=== PATIENT | female | born 1945 | race Caucasian/White ===

== ENCOUNTER 2019-05-10 09:38 | Emergency (ER) | payer MEDICARE ==
[2019-05-10 09:55] VITALS: BP 151/71; PULSE 65
--- NOTE | 2019-05-10 10:53 | EDM.PDOC ---
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 She suddenly felt like thing were moving in front of her. She pulled over and then it got better. She did not have any chest pain. She was not sob. She then developed numbness in the left wrist. She continued to have good motion in the left arm and hand. She has had some episodes of dizziness over the last few monthes. She did not have chest pain today. Onset: Today, Sudden Duration: Hour(s): Location: Reports: Head, Upper Extremity, Left Associated Symptoms: Reports: Nausea/Vomiting - Related Data Allergies Allergy/AdvReac Type Severity Reaction Status Date / Time aspirin Allergy Cough Verified 08/14/18 09:45 Penicillins Allergy Cough Verified 08/14/18 09:45 Sulfa (Sulfonamide Allergy Cough Verified 08/14/18 09:45 Antibiotics) Home Meds: Home Meds *Probiotic 1 tab PO DAILY 11/14/15 [History] ALPRAZolam [Xanax] 0.5 mg PO BID 11/14/15 [History] Atenolol [Tenormin] 50 mg PO DAILY 11/14/15 [History] Cholecalciferol (Vitamin D3) [Vitamin D3] 1,000 unit PO DAILY 11/14/15 [History] Multivit-Min/FA/Lycopene/Lut [Centrum Silver Tablet] 1 tab PO DAILY 11/14/15 [ History] Ubidecarenone [Co Q-10] 200 mg PO DAILY 11/14/15 [History] diphenhydrAMINE [Benadryl] 25 mg PO BEDTIME PRN 11/14/15 [History] Past Medical History HEENT History: Reports: Impaired Vision, Sinusitis Cardiovascular History: Reports: Other (See Below) Other Cardiovascular History: mitral valve prolapse Respiratory History: Reports: Bronchitis, Recurrent, Other (See Below) Other Respiratory History: Occasional pneumonia Gastrointestinal History: Reports: Irritable Bowel Syndrome, Other (See Below) Other Gastrointestinal History: chron's / colitis Genitourinary History: Reports: UTI, Recurrent 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 (See Below) 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 Psychiatric History: Reports: Anxiety, Depression Hematologic History: Reports: Blood Transfusion(s) Dermatologic History: Reports: Eczema - Infectious Disease History Infectious Disease History: Reports: Chicken Pox, Measles, Mumps - Past Surgical History HEENT Surgical History: Reports: Oral Surgery, Tonsillectomy Cardiovascular Surgical History: Reports: Other (See Below) Other Cardiovascular Surgeries/Procedures: angiogram Respiratory Surgical History: Reports: None GI Surgical History: Reports: Appendectomy, Cholecystectomy, Colonoscopy, EGD Female Surgical History: Reports: Hysterectomy Social & Family History - Tobacco Use Smoking Status *Q: Never Smoker - Caffeine Use Caffeine Use: Reports: Coffee, Tea - Recreational Drug Use Recreational Drug Use: No ED ROS GENERAL - Review of Systems Review Of Systems: See Below Constitutional: Reports: No Symptoms HEENT: Reports: No Symptoms Respiratory: Reports: No Symptoms Cardiovascular: Reports: Lightheadedness, Other ( pt believes she had vertigo. ) Endocrine: Reports: No Symptoms GI/Abdominal: Reports: No Symptoms : Reports: No Symptoms Musculoskeletal: Reports: No Symptoms Skin: Reports: No Symptoms ED EXAM, GENERAL - Physical Exam Exam: See Below Free Text/Narrative:: Myra had an episode that sounded like vertigo. She pulledover to the side of the road and she felt like most of it passed. She still feels a little vertigious if she moves quickly. Exam Limited By: No Limitations General Appearance: Alert, Anxious, Mild Distress, Other (pupils are equal and reactive. ) Ears: Normal TMs Nose: Normal Inspection Throat/Mouth: Normal Inspection Head: Atraumatic Neck: Normal Inspection, Other (no evidence of carotid bruits. ) Respiratory/Chest: No Respiratory Distress Cardiovascular: Regular Rate, Rhythm GI/Abdominal: Soft, Non-Tender (Female) Exam: Deferred Rectal (Female) Exam: Deferred Back Exam: Normal Inspection Extremities: Normal Inspection Neurological: Alert, Oriented, No Motor/Sensory Deficits Psychiatric: Normal Affect Course - Vital Signs Last Recorded V/S: Last Vital Signs Temp 36.2 C 05/10/19 09:58 Pulse 65 05/10/19 09:58 Resp 16 05/10/19 09:58 BP 151/71 H 05/10/19 09:58 Pulse Ox 95 05/10/19 09:58 Orthostatic Blood Pressure [ 136/72 Standing] Orthostatic Blood Pressure [ 140/72 Sitting] Orthostatic Blood Pressure [ 129/49 Supine] - Orders/Labs/Meds Labs: Laboratory Tests 05/10/19 05/10/19 05/10/19 Range/Units 10:59 10:59 11:04 WBC 8.7 (4.5-11.0) K/uL RBC 4.50 (3.30-5.50) M/uL Hgb 11.6 L (12.0-15.0) g/dL Hct 36.6 (36.0-48.0) % MCV 81 (80-98) fL MCH 26 L (27-31) pg MCHC 32 (32-36) % Plt Count 477 H (150-400) K/uL Neut % (Auto) 57 (36-66) % Lymph % (Auto) 25 (24-44) % [place] % (Auto) 8 H (2-6) % Eos % (Auto) 10 H (2-4) % Baso % (Auto) 1 (0-1) % Sodium 140 (140-148) mmol/L Potassium 4.0 (3.6-5.2) mmol/L Chloride 106 (100-108) mmol/L Carbon Dioxide 25 (21-32) mmol/L Anion Gap 8.6 (5.0-14.0) mmol/L BUN 13 D (7-18) mg/dL Creatinine 0.7 (0.6-1.0) mg/dL Est Cr Clr Drug Dosing 73.83 mL/min Estimated GFR (MDRD) > 60 (>60) Glucose 99 (74-106) mg/dL Calcium 9.7 (8.5-10.1) mg/dL Total Bilirubin 0.2 (0.2-1.0) mg/dL AST 19 (15-37) U/L ALT 27 (12-78) U/L Alkaline Phosphatase 83 (46-116) U/L Troponin I < 0.017 (0.000-0.056) ng/mL Total Protein 7.3 (6.4-8.2) g/dL Albumin 2.9 L (3.4-5.0) g/dL Globulin 4.4 H (2.3-3.5) g/dL Albumin/Globulin Ratio 0.7 L (1.2-2.2) Urine Color Yellow Urine Appearance Clear Urine pH 7.0 (4.5-8.0) Ur Specific [place] 1.010 (1.008-1.030) Urine Protein Negative (NEGATIVE) mg/dL Urine Glucose (UA) Normal (NEGATIVE) mg/dL Urine Ketones Negative (NEGATIVE) mg/dL Urine Occult Blood Trace (NEGATIVE) Urine Nitrite Negative (NEGATIVE) Urine Bilirubin Negative (NEGATIVE) Urine Urobilinogen Normal (NORMAL) mg/dL Ur Leukocyte Esterase Trace (NEGATIVE) Urine RBC 0-5 (0-5) Urine WBC 0-5 (0-5) Ur Epithelial Cells Rare Amorphous Sediment Not seen Urine Bacteria Few Urine Mucus Not seen Meds: Medications Discontinued Medications Generic Name Dose Route Start Last Admin Trade Name Yohannes PRN Reason Stop Dose Admin Meclizine HCl 25 mg 05/10/19 12:57 05/10/19 13:02 Antivert PO 05/10/19 12:58 25 mg ONETIME ONE Administration - Re-Assessments/Exams Free Text/Narrative Re-Assessment/Exam: 05/17/19 07:04 pt had a cat scan of the head which was neg. She had normal lab work. She was given antivert 25 while here. She was given some fluids. She felt better and she was discharged. She is working over nites and she might want to limit it to 2 nites in a row and not 3. She is caring for a close friend and I feel this is quite emotional for her. Departure - Departure Time of Disposition: 13:16 Disposition: Home, Self-Care 01 Condition: Fair Clinical Impression: Vertigo, Light sensitivity - Discharge Information Instructions: Vertigo, [id number] Referrals: Liang Webb MD [Primary Care Provider] - Forms: ED Department Discharge Care Plan Goals: keep appt for physical scheduled, Send a copy of her labs with pt for that appt , avoid working more than 2 nites in a row doing over nites. schedule carotid US antivert 25 mg as needed for episodes of vertigo.
--- NOTE | 2019-05-10 11:43 | CT ---
Head wo Cont CLINICAL HISTORY: Tingling left upper extremity COMPARISON: MR brain 2017 TECHNIQUE: Transverse scans were obtained from the base of the skull through the vertex without IV contrast on a multislice, multidetector CT scanner. Auto dosage reduction and iterative reconstruction techniques employed. FINDINGS: No focal abnormal parenchymal density is identified. There is no mass effect, hemorrhage, or extraaxial collection. The basal cisterns and sulci over the convexities are normal. The ventricles are normal for age. IMPRESSION: No acute intracranial findings or significant change from MR brain 2017
[2019-05-10] MEDS ORDERED: Meclizine 25 MG Tab PO ONE (12:57)
== END 2019-05-10 13:44 | disposition home or self-care (01) ==
LOC: JP.ED 09:38
DX: R42 Dizziness and giddiness (principal); H53.149 Visual discomfort, unspecified; F41.9 Anxiety disorder, unspecified; F32.9 Major depressive disorder, single episode, unspecified; Z90.710 Acquired absence of both cervix and uterus; Z98.890 Other specified postprocedural states; Z90.49 Acquired absence of other specified parts of digestive tract; Z88.0 Allergy status to penicillin; Z88.6 Allergy status to analgesic agent; Z88.2 Allergy status to sulfonamides
CPT/HCPCS: 36415; 70450; 80053; 81001; 84484; 85025; 93005; 99284; A9270; 93010; 99282

== ENCOUNTER 2021-10-14 07:12 | Inpatient (IN) | payer MEDICARE ==
[2021-10-14] MEDS ORDERED: Sodium Chloride 0.9% 10 ML Syringe FLUSH PRN ×2 (07:25→11:19)
[2021-10-14] MEDS ORDERED: Ondansetron 4 MG/2 ML SDV IVPUSH ONE (07:26)
[2021-10-14] MEDS ORDERED: HYDROmorphone 0.5 MG/0.5 ML Syringe IVPUSH ONE ×2 (07:27→08:38)
[2021-10-14] MEDS ORDERED: Sodium Chloride 0.9% 1,000 ML IV SCH (08:30)
[2021-10-14] MEDS: Iopamidol 612 MG/ML 100 ML Bottle IV STA (09:26)
--- NOTE | 2021-10-14 10:24 | CRLCT ---
For Patients: As a result of the Century Cures Act, medical imaging exams and procedure reports are released immediately into your electronic medical record. You may view this report before your referring provider. If you have questions, please contact your health care provider. Indication: Upper abdominal pain Technique: Contrast CT abdomen pelvis Comparison: No comparison Findings: Heart size is normal. Basilar atelectasis. No effusion. Moderate hiatal hernia splenic adrenal glands. Unremarkable pancreas unremarkable. No abdominal aortic aneurysm. Cholecystectomy biliary dilatation. No abdominal aortic aneurysm. Symmetric enhancement of kidneys. Tiny too small to characterize low attenuation lesion on the right Is proximal mid mildly prominent fluid-filled small bowel loops. Dilated 3.6 centimeter distal small bowel loops with adjacent distal small bowel wall thickening with inflammatory change which is decompressed. This is seen on There are other areas of small bowel wall thickening and inflammatory changes in the distal small bowel with mucosal enhancement. Findings could be related to areas of small bowel obstruction related to intervening areas of enteritis. Small amount of free fluid in the pelvis. Stomach and colon are fluid-filled. Urinary bladder unremarkable. Minimal amount of fluid in the pelvis. There is no free air. No suspicious bony lesions are seen. Impression: 1. Mildly prominent fluid filled proximal and mid small bowel loops. Dilated the 0.6 tumor distal small bowel loops with adjacent distal small bowel thickening and inflammatory change which is decompressed. There are multiple other distal small bowel loops areas of wall thickening and enhancement. Findings could be related to small bowel obstruction with multiple areas of small bowel enteritis. The colon small bowel and stomach are fluid-filled which could be related to gastroenteritis. Please note that all CT scans at this facility use dose modulation, iterative reconstruction, and/or weight-based dosing when appropriate to reduce radiation dose to as low as reasonably achievable. Dictated by Tracy Perez MD @ 10/14/2021 10:23:16 AM (Electronically Signed)
--- NOTE | 2021-10-14 10:54 | EDM.PDOC ---
ED HPI GENERAL MEDICAL PROBLEM - General Chief Complaint: Respiratory Problem Stated Complaint: SHORTNESS OF BREATH Time Seen by Provider: 10/14/21 07:20 Source of Information: Reports: Patient, EMS History Limitations: Reports: No Limitations - History of Present Illness INITIAL COMMENTS - FREE TEXT/NARRATIVE: pt arrived with some hest pressure. She woke up with severe upper abdomanal pain. She did vomit at home. She has a known history of crohns disease. She continued to have pain and tenderness in the epigastric area. S Duration: Hour(s): Location: Reports: Chest, Abdomen, Generalized Associated Symptoms: Reports: Nausea/Vomiting, Shortness of Breath, Weakness Upper Epigastric Pain Score (Numeric/FACES): 7 - Related Data Allergies Allergy/AdvReac Type Severity Reaction Status Date / Time aspirin Allergy Cough Verified 10/14/21 07:34 Penicillins Allergy Cough Verified 10/14/21 07:34 Sulfa (Sulfonamide Allergy Cough Verified 10/14/21 07:34 Antibiotics) Home Meds: Home Meds *Probiotic 1 tab PO DAILY 11/14/15 [History] ALPRAZolam [Xanax] 0.5 mg PO BID 11/14/15 [History] Cholecalciferol (Vitamin D3) [Vitamin D3] 2,000 unit PO DAILY 11/14/15 [History] Multivit-Min/FA/Lycopen/Lutein [Centrum Silver Tablet] 1 tab PO DAILY 11/14/15 [History] Ubidecarenone [Co Q-10] 200 mg PO DAILY 11/14/15 [History] atenoloL [Tenormin] 25 mg PO DAILY 11/14/15 [History] diphenhydrAMINE [Benadryl] 25 mg PO BEDTIME PRN 11/14/15 [History] Cyanocobalamin (Vitamin B-12) [Vitamin B-12] 1,000 mg PO DAILY 04/26/20 [History] Meclizine HCl 25 mg PO ASDIRECTED PRN 04/26/20 [History] Balsalazide [Colazal] 750 mg PO DAILY 10/14/21 [History] Past Medical History HEENT History: Reports: Impaired Vision, Sinusitis Cardiovascular History: Reports: Other (See Below) Other Cardiovascular History: mitral valve prolapse Respiratory History: Reports: Bronchitis, Recurrent, Other (See Below) Other Respiratory History: Occasional pneumonia Gastrointestinal History: Reports: Irritable Bowel Syndrome, Other (See Below) Other Gastrointestinal History: chron's / colitis Genitourinary History: Reports: UTI, Recurrent 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 Psychiatric History: Reports: Anxiety, Depression Hematologic History: Reports: Blood Transfusion(s) Dermatologic History: Reports: Eczema - Infectious Disease History Infectious Disease History: Reports: Chicken Pox, Measles, Mumps - Past Surgical History HEENT Surgical History: Reports: Oral Surgery, Tonsillectomy Cardiovascular Surgical History: Reports: Other (See Below) Other Cardiovascular Surgeries/Procedures: angiogram Respiratory Surgical History: Reports: None GI Surgical History: Reports: Appendectomy, Cholecystectomy, Colonoscopy, EGD Female Surgical History: Reports: Hysterectomy Social & Family History - Tobacco Use Tobacco Use Status *Q: Never Tobacco User - Caffeine Use Caffeine Use: Reports: None - Recreational Drug Use Recreational Drug Use: No ED ROS GENERAL - Review of Systems Review Of Systems: See Below Constitutional: Reports: Weakness, Diaphoresis HEENT: Reports: No Symptoms Respiratory: Reports: Shortness of Breath Cardiovascular: Reports: Other ( She did feel some chest pressure) Endocrine: Reports: No Symptoms GI/Abdominal: Reports: Abdominal Pain, Nausea, Vomiting : Reports: No Symptoms Musculoskeletal: Reports: No Symptoms Skin: Reports: No Symptoms ED EXAM, GENERAL - Physical Exam Exam: See Below Free Text/Narrative:: pt arrived with paini in the epigastric area. She does not think this feel like heart burn. She did vomit at home. Exam Limited By: No Limitations General Appearance: Alert, Anxious, Moderate Distress, Other (pt is rating her pain at a 8-9. ) Ears: Normal TMs Nose: Normal Inspection Throat/Mouth: Normal Inspection Head: Atraumatic Neck: Normal Inspection Respiratory/Chest: No Respiratory Distress Cardiovascular: Regular Rate, Rhythm, Other (pt is having a number of ectopics. ) GI/Abdominal: Other ( tender in the epigastric area. ) (Female) Exam: Deferred Rectal (Female) Exam: Deferred, Other (pt chronicly has diarrhea) Back Exam: Normal Inspection Extremities: Normal Inspection Neurological: Alert, Oriented, Normal Cognition Psychiatric: Anxious Course - Vital Signs Last Recorded V/S: Last Vital Signs Temp 36.2 C 10/14/21 07:15 Pulse 83 10/14/21 10:10 Resp 18 10/14/21 10:10 BP 134/66 10/14/21 10:10 Pulse Ox 94 L 10/14/21 10:10 - Orders/Labs/Meds Orders: Active Orders 24 hr Category Date Time Status Chest 1V Frontal [CR] Stat Exams 10/14/21 07:26 Taken Sodium Chloride 0.9% [Normal Saline] 1,000 ml Med 10/14/21 08:30 Active IV ASDIRECTED Sodium Chloride 0.9% [Saline Flush] Med 10/14/21 07:25 Active 10 ml FLUSH ASDIRECTED PRN Saline Lock Insert [OM.PC] Routine Oth 10/14/21 07:25 Ordered EKG 12 Lead [EK] Routine Ther 10/14/21 07:25 Ordered Medication Orders Sodium Chloride (Normal Saline) 1,000 mls @ 250 mls/hr IV ASDIRECTED SOBIA Last Admin: 10/14/21 08:58 Dose: 250 mls/hr Documented by: MYRTLE Sodium Chloride (Sodium Chloride 0.9% 10 Ml Syringe) 10 ml FLUSH ASDIRECTED PRN PRN Reason: Keep Vein Open Last Admin: 10/14/21 08:07 Dose: 10 ml Documented by: MYRTLE Labs: Laboratory Tests 10/14/21 10/14/21 10/14/21 Range/Units 07:24 07:25 07:30 WBC 15.6 H (4.5-11.0) K/uL RBC 5.51 H (3.30-5.50) M/uL Hgb 13.6 D (12.0-15.0) g/dL Hct 42.1 (36.0-48.0) % MCV 76 L (80-98) fL MCH 25 L (27-31) pg MCHC 32 (32-36) % Plt Count 562 H (150-400) K/uL Neut % (Auto) 85.8 H (36-66) % Lymph % (Auto) 9.2 L (24-44) % [place] % (Auto) 4.0 (2-6) % Eos % (Auto) 0.7 L (2-4) % Baso % (Auto) 0.3 (0-1) % Sodium 138 L (140-148) mmol/L Potassium 4.0 (3.6-5.2) mmol/L Chloride 103 (100-108) mmol/L Carbon Dioxide 23 (21-32) mmol/L Anion Gap 16.0 H (5.0-14.0) mmol/L BUN 12 (7-18) mg/dL Creatinine 0.9 (0.6-1.0) mg/dL Est Cr Clr Drug Dosing 56.61 mL/min Estimated GFR (MDRD) > 60 (>60) Glucose 133 H (74-106) mg/dL Calcium 10.2 H (8.5-10.1) mg/dL Total Bilirubin 0.4 D (0.2-1.0) mg/dL AST 17 (15-37) U/L ALT 23 (12-78) U/L Alkaline Phosphatase 93 (46-116) U/L Troponin I High Sens (<=60.3) pg/mL C-Reactive Protein (0.0-0.3) mg/dL Total Protein 7.9 (6.4-8.2) g/dL Albumin 3.4 (3.4-5.0) g/dL Globulin 4.5 H (2.3-3.5) g/dL Albumin/Globulin Ratio 0.8 L (1.2-2.2) Lipase (73-393) U/L Urine Color (YELLOW) Urine Appearance Clear (CLEAR) Urine pH 5.5 (5.0-8.0) Ur Specific [place] >= 1.030 (1.008-1.030) Urine Protein 30 H (NEGATIVE) mg/dL Urine Glucose (UA) Negative (NEGATIVE) mg/dL Urine Ketones Negative (NEGATIVE) mg/dL Urine Occult Blood Moderate H (NEGATIVE) Urine Nitrite Negative (NEGATIVE) Urine Bilirubin Negative (NEGATIVE) Urine Urobilinogen 0.2 (0.2-1.0) EU/dL Ur Leukocyte Esterase Negative (NEGATIVE) Urine RBC 5-10 H (0-5) Urine WBC Not seen (0-5) Ur Epithelial Cells Few Amorphous Sediment Not seen Urine Bacteria Not seen Urine Mucus Many Urine Other 10/14/21 10/14/21 Range/Units 07:30 07:30 WBC (4.5-11.0) K/uL RBC (3.30-5.50) M/uL Hgb (12.0-15.0) g/dL Hct (36.0-48.0) % MCV (80-98) fL MCH (27-31) pg MCHC (32-36) % Plt Count (150-400) K/uL Neut % (Auto) (36-66) % Lymph % (Auto) (24-44) % [place] % (Auto) (2-6) % Eos % (Auto) (2-4) % Baso % (Auto) (0-1) % Sodium (140-148) mmol/L Potassium (3.6-5.2) mmol/L Chloride (100-108) mmol/L Carbon Dioxide (21-32) mmol/L Anion Gap (5.0-14.0) mmol/L BUN (7-18) mg/dL Creatinine (0.6-1.0) mg/dL Est Cr Clr Drug Dosing mL/min Estimated GFR (MDRD) (>60) Glucose (74-106) mg/dL Calcium (8.5-10.1) mg/dL Total Bilirubin (0.2-1.0) mg/dL AST (15-37) U/L ALT (12-78) U/L Alkaline Phosphatase (46-116) U/L Troponin I High Sens 4.9 (<=60.3) pg/mL C-Reactive Protein 0.92 H (0.0-0.3) mg/dL Total Protein (6.4-8.2) g/dL Albumin (3.4-5.0) g/dL Globulin (2.3-3.5) g/dL Albumin/Globulin Ratio (1.2-2.2) Lipase 158 (73-393) U/L Urine Color (YELLOW) Urine Appearance (CLEAR) Urine pH (5.0-8.0) Ur Specific [place] (1.008-1.030) Urine Protein (NEGATIVE) mg/dL Urine Glucose (UA) (NEGATIVE) mg/dL Urine Ketones (NEGATIVE) mg/dL Urine Occult Blood (NEGATIVE) Urine Nitrite (NEGATIVE) Urine Bilirubin (NEGATIVE) Urine Urobilinogen (0.2-1.0) EU/dL Ur Leukocyte Esterase (NEGATIVE) Urine RBC (0-5) Urine WBC (0-5) Ur Epithelial Cells Amorphous Sediment Urine Bacteria Urine Mucus Urine Other Meds: Medications Generic Name Dose Route Start Last Admin Trade Name Freq PRN Reason Stop Dose Admin Sodium Chloride 1,000 mls @ 250 mls/hr 10/14/21 08:30 10/14/21 08:58 Normal Saline IV 250 mls/hr ASDIRECTED SOBIA Administration Sodium Chloride 10 ml 10/14/21 07:25 10/14/21 08:07 Sodium Chloride 0.9% 10 Ml Syringe FLUSH 10 ml ASDIRECTED PRN Administration Keep Vein Open Discontinued Medications Generic Name Dose Route Start Last Admin Trade Name Yohannes PRN Reason Stop Dose Admin Hydromorphone HCl 0.5 mg 10/14/21 07:27 10/14/21 08:07 Hydromorphone 0.5 Mg/0.5 Ml Syringe IVPUSH 10/14/21 07:28 0.5 mg ONETIME ONE Administration Hydromorphone HCl 0.5 mg 10/14/21 08:38 10/14/21 08:56 Hydromorphone 0.5 Mg/0.5 Ml Syringe IVPUSH 10/14/21 08:39 0.5 mg ONETIME ONE Administration Sodium Chloride 73 mls @ 3.3 mls/sec 10/14/21 09:12 10/14/21 09:27 Normal Saline IV 10/14/21 09:13 3.3 mls/sec ASDIRECTED STA Administration Iopamidol 100 ml 10/14/21 09:11 10/14/21 09:26 Iopamidol 612 Mg/Ml 100 Ml Bottle IV 10/14/21 09:12 100 ml . DIRECTED STA Administration Ondansetron HCl 4 mg 10/14/21 07:26 10/14/21 08:05 Ondansetron 4 Mg/2 Ml Sdv IVPUSH 10/14/21 07:27 4 mg ONETIME ONE Administration - Re-Assessments/Exams Free Text/Narrative Re-Assessment/Exam: 10/14/21 10:54 pt had a ekg without st changes she is having alot of ectopics. Her trop is normal. She is having alot of pain in epigastric area. Her wbc was elevated. A cat scan of the abdoman. This shows numrous thickend areas. She may have had a bowel obstruction. She has had a mg of dilaudid and she is more comfortable. 10/14/21 10:55 Departure - Departure Time of Disposition: 10:57 Disposition: Admitted As Inpatient 64 Condition: Fair Clinical Impression: Partial bowel obstruction, Crohn's colitis, Dehydration Referrals: PCP,None [Primary Care Provider] - Forms: ED Department Discharge Care Plan Goals: admit to Dr solorio Sepsis Event Note (ED) - Evaluation Sepsis Screening Result: No Definite Risk - Focused Exam Vital Signs: Vital Signs Temp Pulse Resp BP Pulse Ox 10/14/21 10:10 83 18 134/66 94 L 10/14/21 09:10 72 17 138/52 L 94 L 10/14/21 08:10 83 23 H 147/61 H 96 10/14/21 07:15 36.2 C 73 23 H 143/67 H 98 - My Orders Last 24 Hours: My Active Orders 10/14/21 07:25 Sodium Chloride 0.9% [Saline Flush] 10 ml FLUSH ASDIRECTED PRN Saline Lock Insert [OM.PC] Routine EKG 12 Lead [EK] Routine 10/14/21 07:26 Chest 1V Frontal [CR] Stat 10/14/21 08:30 Sodium Chloride 0.9% [Normal Saline] 1,000 ml IV ASDIRECTED - Assessment/Plan Last 24 Hours: My Active Orders 10/14/21 07:25 Sodium Chloride 0.9% [Saline Flush] 10 ml FLUSH ASDIRECTED PRN Saline Lock Insert [OM.PC] Routine EKG 12 Lead [EK] Routine 10/14/21 07:26 Chest 1V Frontal [CR] Stat 10/14/21 08:30 Sodium Chloride 0.9% [Normal Saline] 1,000 ml IV ASDIRECTED
[2021-10-14] MEDS ORDERED: Ciprofloxacin in D5W 400 MG in Premix Bag 1 BAG IV SCH ×2 (11:00)
--- NOTE | 2021-10-14 11:03 | PCM.HP.2 ---
H&P History of Present Illness - General Date of Service: 10/14/21 Admit Problem/Dx: Admission Diagnosis/Problem Admission Diagnosis/Problem Small bowel obstruction Source of Information: Patient, Provider, RN Notes Reviewed History Limitations: Reports: No Limitations - History of Present Illness Initial Comments - Free Text/Narative: Ms. Lam is a 75-year-old woman who was admitted through the emergency department with abdominal pain, nausea, and vomiting, secondary to partial small bowel obstruction and underlying enteritis. She has a known history of Crohn's disease which has been relatively well controlled and she is in the process of tapering herself off of medication. She had been feeling well recently but awoke this morning at 2 AM with abdominal pain described as a intense ache in the right mid abdomen, with no radiation. This was associated with nausea and vomiting and because of progressive symptoms she presented to the emergency department early this morning. White blood cell count is found to be elevated and there is a very modest elevation in CRP. CT scan of the abdomen suggests small bowel obstruction, with dilated loops of small intestine. There is some inflammation also noted. Upper Epigastric Pain Score (Numeric/FACES): 7 - Related Data Allergies/Adverse Reactions: Allergies Allergy/AdvReac Type Severity Reaction Status Date / Time aspirin Allergy Cough Verified 10/14/21 07:34 Penicillins Allergy Cough Verified 10/14/21 07:34 Sulfa (Sulfonamide Allergy Cough Verified 10/14/21 07:34 Antibiotics) Home Medications: Home Meds *Probiotic 1 tab PO DAILY 11/14/15 [History] ALPRAZolam [Xanax] 0.5 mg PO BID 11/14/15 [History] Cholecalciferol (Vitamin D3) [Vitamin D3] 2,000 unit PO DAILY 11/14/15 [History] Multivit-Min/FA/Lycopen/Lutein [Centrum Silver Tablet] 1 tab PO DAILY 11/14/15 [History] Ubidecarenone [Co Q-10] 200 mg PO DAILY 11/14/15 [History] atenoloL [Tenormin] 25 mg PO DAILY 11/14/15 [History] diphenhydrAMINE [Benadryl] 25 mg PO BEDTIME PRN 11/14/15 [History] Cyanocobalamin (Vitamin B-12) [Vitamin B-12] 1,000 mg PO DAILY 04/26/20 [History] Meclizine HCl 25 mg PO ASDIRECTED PRN 04/26/20 [History] Balsalazide [Colazal] 750 mg PO DAILY 10/14/21 [History] Past Medical History HEENT History: Reports: Impaired Vision, Sinusitis Cardiovascular History: Reports: Other (See Below) Other Cardiovascular History: mitral valve prolapse Respiratory History: Reports: Bronchitis, Recurrent, Other (See Below) Other Respiratory History: Occasional pneumonia Gastrointestinal History: Reports: Irritable Bowel Syndrome, Other (See Below) Other Gastrointestinal History: chron's / colitis Genitourinary History: Reports: UTI, Recurrent [employer] History: Reports: Other (See Below) Other OB/BYN History: Hysterectomy Psychiatric History: Reports: Anxiety, Depression Hematologic History: Reports: Blood Transfusion(s) Dermatologic History: Reports: Eczema - Infectious Disease History Infectious Disease History: Reports: Chicken Pox, Measles, Mumps - Past Surgical History HEENT Surgical History: Reports: Oral Surgery, Tonsillectomy Cardiovascular Surgical History: Reports: Other (See Below) Other Cardiovascular Surgeries/Procedures: angiogram Respiratory Surgical History: Reports: None GI Surgical History: Reports: Appendectomy, Cholecystectomy, Colonoscopy, EGD Female Surgical History: Reports: Hysterectomy Social & Family History - Tobacco Use Tobacco Use Status *Q: Never Tobacco User - Caffeine Use Caffeine Use: Reports: None - Recreational Drug Use Recreational Drug Use: No H&P Review of Systems - Review of Systems: Review Of Systems: See Below General: Reports: Weakness, Fatigue, Decreased Appetite. Denies: Fever, Chills HEENT: Reports: No Symptoms Pulmonary: Reports: No Symptoms Cardiovascular: Reports: No Symptoms Gastrointestinal: Reports: Abdominal Pain, Distension, Nausea, Vomiting. Denies: Constipation, Diarrhea, Difficulty Swallowing, Hematemesis, Hematochezia, Melena Genitourinary: Reports: No Symptoms Musculoskeletal: Reports: No Symptoms Skin: Reports: No Symptoms Psychiatric: Reports: No Symptoms Neurological: Reports: No Symptoms Hematologic/Lymphatic: Reports: No Symptoms Immunologic: Reports: No Symptoms Exam - Exam Exam: See Below - Vital Signs Vital Signs: Last Vital Signs Temp 97.1 F 10/14/21 07:15 Pulse 83 10/14/21 10:10 Resp 18 10/14/21 10:10 BP 134/66 10/14/21 10:10 Pulse Ox 94 L 10/14/21 10:10 Weight: 160 lb - Exam Quality Assessment: DVT Prophylaxis General: Alert, Oriented, Cooperative, Mild Distress HEENT: Conjunctiva Clear, Hearing Intact, Mucosa Moist & [place], Normal Nasal Septum, Posterior Pharynx Clear, Pupils Equal Neck: Supple, Trachea Midline, +2 Carotid Pulse wo Bruit Lungs: Clear to Auscultation, Normal Respiratory Effort Cardiovascular: Regular Rate, Regular Rhythm, Normal S1, Normal S2. No: Systolic Murmur, Diastolic Murmur GI/Abdominal Exam: Soft, No Organomegaly, Distended, Tender. No: Guarding, Rigid, Rebound Back Exam: Normal Inspection, Full Range of Motion Extremities: Non-Tender, No Pedal Edema Skin: Warm, Dry, Intact, Other (Extensive seborrheic keratosis) Neurological: Cranial Nerves Intact, Strength Equal Bilateral, Normal Speech, Normal Tone, Sensation Intact. No: Focal Deficit Neuro Extensive - Mental Status: Alert, Oriented x3, Normal Mood/Affect, Normal Cognition, Memory Intact - Patient Data Lab Results Last 24 hrs: Laboratory Results - last 24 hr 10/14/21 10/14/21 10/14/21 Range/Units 07:24 07:25 07:30 WBC 15.6 H (4.5-11.0) K/uL RBC 5.51 H (3.30-5.50) M/uL Hgb 13.6 D (12.0-15.0) g/dL Hct 42.1 (36.0-48.0) % MCV 76 L (80-98) fL MCH 25 L (27-31) pg MCHC 32 (32-36) % Plt Count 562 H (150-400) K/uL Neut % (Auto) 85.8 H (36-66) % Lymph % (Auto) 9.2 L (24-44) % [place] % (Auto) 4.0 (2-6) % Eos % (Auto) 0.7 L (2-4) % Baso % (Auto) 0.3 (0-1) % Sodium 138 L (140-148) mmol/L Potassium 4.0 (3.6-5.2) mmol/L Chloride 103 (100-108) mmol/L Carbon Dioxide 23 (21-32) mmol/L Anion Gap 16.0 H (5.0-14.0) mmol/L BUN 12 (7-18) mg/dL Creatinine 0.9 (0.6-1.0) mg/dL Est Cr Clr Drug Dosing 56.61 mL/min Estimated GFR (MDRD) > 60 (>60) Glucose 133 H (74-106) mg/dL Calcium 10.2 H (8.5-10.1) mg/dL Total Bilirubin 0.4 D (0.2-1.0) mg/dL AST 17 (15-37) U/L ALT 23 (12-78) U/L Alkaline Phosphatase 93 (46-116) U/L Troponin I High Sens (<=60.3) pg/mL C-Reactive Protein (0.0-0.3) mg/dL Total Protein 7.9 (6.4-8.2) g/dL Albumin 3.4 (3.4-5.0) g/dL Globulin 4.5 H (2.3-3.5) g/dL Albumin/Globulin Ratio 0.8 L (1.2-2.2) Lipase (73-393) U/L Urine Color (YELLOW) Urine Appearance Clear (CLEAR) Urine pH 5.5 (5.0-8.0) Ur Specific [place] >= 1.030 (1.008-1.030) Urine Protein 30 H (NEGATIVE) mg/dL Urine Glucose (UA) Negative (NEGATIVE) mg/dL Urine Ketones Negative (NEGATIVE) mg/dL Urine Occult Blood Moderate H (NEGATIVE) Urine Nitrite Negative (NEGATIVE) Urine Bilirubin Negative (NEGATIVE) Urine Urobilinogen 0.2 (0.2-1.0) EU/dL Ur Leukocyte Esterase Negative (NEGATIVE) Urine RBC 5-10 H (0-5) Urine WBC Not seen (0-5) Ur Epithelial Cells Few Amorphous Sediment Not seen Urine Bacteria Not seen Urine Mucus Many Urine Other 10/14/21 10/14/21 Range/Units 07:30 07:30 WBC (4.5-11.0) K/uL RBC (3.30-5.50) M/uL Hgb (12.0-15.0) g/dL Hct (36.0-48.0) % MCV (80-98) fL MCH (27-31) pg MCHC (32-36) % Plt Count (150-400) K/uL Neut % (Auto) (36-66) % Lymph % (Auto) (24-44) % [place] % (Auto) (2-6) % Eos % (Auto) (2-4) % Baso % (Auto) (0-1) % Sodium (140-148) mmol/L Potassium (3.6-5.2) mmol/L Chloride (100-108) mmol/L Carbon Dioxide (21-32) mmol/L Anion Gap (5.0-14.0) mmol/L BUN (7-18) mg/dL Creatinine (0.6-1.0) mg/dL Est Cr Clr Drug Dosing mL/min Estimated GFR (MDRD) (>60) Glucose (74-106) mg/dL Calcium (8.5-10.1) mg/dL Total Bilirubin (0.2-1.0) mg/dL AST (15-37) U/L ALT (12-78) U/L Alkaline Phosphatase (46-116) U/L Troponin I High Sens 4.9 (<=60.3) pg/mL C-Reactive Protein 0.92 H (0.0-0.3) mg/dL Total Protein (6.4-8.2) g/dL Albumin (3.4-5.0) g/dL Globulin (2.3-3.5) g/dL Albumin/Globulin Ratio (1.2-2.2) Lipase 158 (73-393) U/L Urine Color (YELLOW) Urine Appearance (CLEAR) Urine pH (5.0-8.0) Ur Specific [place] (1.008-1.030) Urine Protein (NEGATIVE) mg/dL Urine Glucose (UA) (NEGATIVE) mg/dL Urine Ketones (NEGATIVE) mg/dL Urine Occult Blood (NEGATIVE) Urine Nitrite (NEGATIVE) Urine Bilirubin (NEGATIVE) Urine Urobilinogen (0.2-1.0) EU/dL Ur Leukocyte Esterase (NEGATIVE) Urine RBC (0-5) Urine WBC (0-5) Ur Epithelial Cells Amorphous Sediment Urine Bacteria Urine Mucus Urine Other Result Diagrams: 10/14/21 07:24 10/14/21 07:30 Sepsis Event Note - Evaluation Sepsis Screening Result: No Definite Risk - Focused Exam Vital Signs: Vital Signs Temp Pulse Resp BP Pulse Ox 10/14/21 10:10 83 18 134/66 94 L 10/14/21 09:10 72 17 138/52 L 94 L 10/14/21 08:10 83 23 H 147/61 H 96 10/14/21 07:15 97.1 F 73 23 H 143/67 H 98 *Q Meaningful Use (ADM) - VTE Risk Assess *Q Each Risk Factor Represents 1 Point: None Total Score 1 Point Risk Factors: 0 Each Risk Factor Represents 2 Points: None Total Score 2 Point Risk Factors: 0 Each Risk Factor Represents 3 Points: Age 75 Years or Greater Total Score 3 Point Risk Factors: 3 Each Risk Factor Represents 5 Points: None Total Score 5 Point Risk Factors: 0 Venous Thromboembolism Risk Factor Score *Q: 3 Problem List Initiated/Reviewed/Updated: Yes Orders Last 24hrs: Active Orders 24 hr Category Date Time Status Patient Status Manage Transfer [TRANSFER] Routine ADT 10/14/21 10:55 Ordered Chest 1V Frontal [CR] Stat Exams 10/14/21 07:26 Taken CORONAVIRUS COVID-19 RAPID [MOLEC] Stat Lab 10/14/21 11:01 Ordered Ciprofloxacin in D5W [Cipro in D5W 400 MG/200 ML] 400 Med 10/14/21 11:00 Active mg Premix Bag 1 bag IV Q12H Sodium Chloride 0.9% [Normal Saline] 1,000 ml Med 10/14/21 08:30 Active IV ASDIRECTED Sodium Chloride 0.9% [Saline Flush] Med 10/14/21 07:25 Active 10 ml FLUSH ASDIRECTED PRN metroNIDAZOLE/Normal Saline [Flagyl in NS 500 MG/100 ML Med 10/14/21 12:00 Active ] 500 mg Premix Bag 1 bag IV Q8H Saline Lock Insert [OM.PC] Routine Oth 10/14/21 07:25 Ordered Resuscitation Status Routine Resus Stat 10/14/21 10:58 Ordered EKG 12 Lead [EK] Routine Ther 10/14/21 07:25 Ordered Medication Orders Sodium Chloride (Normal Saline) 1,000 mls @ 250 mls/hr IV ASDIRECTED SOBIA Last Admin: 10/14/21 08:58 Dose: 250 mls/hr Documented by: MYRTLE Ciprofloxacin/Dextrose 400 mg/ (Premix) 200 mls @ 200 mls/hr IV Q12H SOBIA Metronidazole 500 mg/ Premix 100 mls @ 100 mls/hr IV Q8H SOBIA Sodium Chloride (Sodium Chloride 0.9% 10 Ml Syringe) 10 ml FLUSH ASDIRECTED PRN PRN Reason: Keep Vein Open Last Admin: 10/14/21 08:07 Dose: 10 ml Documented by: MYRTLE Assessment/Plan Comment:: ASSESSMENT AND PLAN SMALL BOWEL OBSTRUCTION-with probable underlying enteritis, favor bacterial infection given elevated white count and abrupt onset. History of underlying Crohn's disease which has been well controlled recently. -N.p.o. -IV fluids for hydration -Pain and nausea medication as needed -NG placement if she has further nausea and vomiting -Abdominal flatplate and upright x-ray in a.m. -IV ciprofloxacin and metronidazole CROHN'S [id number] over the past several months, in the process of tapering herself off of Balasalazide -Continue current dose of Balasalazide MAINTENANCE ISSUES -DVT prophylaxis; -GI prophylaxis; -Shah catheter; -Nutrition; -Nicotine dependence; CODE STATUS- ADMISSION STATUS-patient will be admitted to inpatient status, expect at least a 2 night hospital stay for evaluation and management of problems as outlined above. At the time of this admission I do not reasonably expected evaluation and management of this problem will require more than a 96 hour hospital stay. DISPOSITION-anticipate discharge to home after the hospital stay. PRIMARY CARE PROVIDER- - Mortality Measure Prognosis:: Good
[2021-10-14] MEDS ORDERED: LORazepam 2 MG/ML SDV IVPUSH PRN (11:19)
[2021-10-14] MEDS ORDERED: HYDROmorphone 0.5 MG/0.5 ML Syringe IVPUSH PRN (11:19)
[2021-10-14] MEDS ORDERED: Acetaminophen 325 MG Tab PO PRN (11:19)
[2021-10-14] MEDS ORDERED: Meclizine 25 MG Tab PO PRN (11:19)
[2021-10-14] MEDS ORDERED: metroNIDAZOLE/Normal Saline 500 MG in Premix Bag 1 BAG IV SCH (12:00)
[2021-10-14] MEDS: Enoxaparin 40 MG/0.4 ML Syringe SUBCUT SCH (13:44)
[2021-10-14] MEDS: Sodium Chloride 0.9% 1,000 ML IV SCH (17:11)
[2021-10-14] MEDS: Calcium Carbonate 500 MG Tab.Chew PO PRN ×3 (17:31→22:46)
[2021-10-14] MEDS: metroNIDAZOLE/Normal Saline 500 MG in Premix Bag 1 BAG IV SCH (19:53)
[2021-10-14] MEDS: Ciprofloxacin in D5W 400 MG in Premix Bag 1 BAG IV SCH ×2 (22:43)
[2021-10-15] MEDS: metroNIDAZOLE/Normal Saline 500 MG in Premix Bag 1 BAG IV SCH ×3 (03:40→20:18)
[2021-10-15] MEDS: Enoxaparin 40 MG/0.4 ML Syringe SUBCUT SCH (08:46)
[2021-10-15] MEDS: Atenolol 25 MG Tab PO SCH (08:46)
[2021-10-15] MEDS: BALSALAZIDE DISODIUM 750 MG PO SCH (08:46)
[2021-10-15] MEDS: Lactobacillus Rhamnosus GG (Probiotic) Cap PO SCH (08:46)
[2021-10-15] MEDS: Sodium Chloride 0.9% 1,000 ML IV SCH (09:10)
--- NOTE | 2021-10-15 10:23 | PCM.PN ---
- General Info Date of Service: 10/15/21 Subjective Update: No acute events overnight. No fevers. She did have several episodes of diarrhea. No abdominal pain overnight but she did have an episode of crampy abdominal pain this morning that was fairly short-lived. Not much of an appetite. No significant nausea. Functional Status: Reports: Pain Controlled - Review of Systems General: Denies: Fever Gastrointestinal: Reports: Abdominal Pain. Denies: Vomiting - Patient Data Vitals - Most Recent: Last Vital Signs Temp 36.2 C 10/15/21 07:32 Pulse 77 10/15/21 08:46 Resp 16 10/15/21 07:32 BP 118/72 10/15/21 08:46 Pulse Ox 95 10/15/21 07:32 Weight - Most Recent: 78.471 kg I&O - Last 24 Hours: Intake & Output 10/14/21 10/15/21 10/15/21 22:59 06:59 14:59 Intake Total 500 1991 120 Output Total 600 200 200 Balance -100 1791 -80 Lab Results Last 24 Hours: Laboratory Results - last 24 hr 10/14/21 10/15/21 10/15/21 Range/Units 11:01 04:15 04:15 WBC 10.7 (4.5-11.0) K/uL RBC 4.37 (3.30-5.50) M/uL Hgb 10.9 L D (12.0-15.0) g/dL Hct 34.4 L (36.0-48.0) % MCV 79 L (80-98) fL MCH 25 L (27-31) pg MCHC 32 (32-36) % Plt Count 458 H (150-400) K/uL Neut % (Auto) 65.7 (36-66) % Lymph % (Auto) 23.0 L (24-44) % [place] % (Auto) 8.1 H (2-6) % Eos % (Auto) 2.9 (2-4) % Baso % (Auto) 0.3 (0-1) % Sodium 141 (140-148) mmol/L Potassium 3.8 (3.6-5.2) mmol/L Chloride 108 (100-108) mmol/L Carbon Dioxide 25 (21-32) mmol/L Anion Gap 7.7 (5.0-14.0) mmol/L BUN 10 (7-18) mg/dL Creatinine 0.9 (0.6-1.0) mg/dL Est Cr Clr Drug Dosing 54.71 mL/min Estimated GFR (MDRD) > 60 (>60) Glucose 103 (74-106) mg/dL Calcium 9.2 (8.5-10.1) mg/dL Magnesium 1.8 (1.8-2.4) mg/dL SARS CoV-2 RNA Rapid RENU Negative Med Orders - Current: Current Medications Acetaminophen (Acetaminophen 325 Mg Tab) 650 mg PO Q4H PRN PRN Reason: Pain (Mild 1-3)/fever Atenolol (Atenolol 25 Mg Tab) 25 mg PO DAILY [facility] Last Admin: 10/15/21 08:46 Dose: 25 mg Documented by: Calcium Carbonate/Glycine (Calcium Carbonate 500 Mg Tab.Chew) 1,000 mg PO Q2H PRN PRN Reason: Indigestion Last Admin: 10/14/21 22:46 Dose: 1,000 mg Documented by: Enoxaparin Sodium (Enoxaparin 40 Mg/0.4 Ml Syringe) 40 mg SUBCUT DAILY [facility] Last Admin: 10/15/21 08:46 Dose: 40 mg Documented by: Hydromorphone HCl (Hydromorphone 0.5 Mg/0.5 Ml Syringe) 0.5 mg IVPUSH Q2H PRN PRN Reason: Pain Ciprofloxacin/Dextrose 400 mg/ (Premix) 200 mls @ 200 mls/hr IV Q12H [facility] Last Admin: 10/14/21 22:43 Dose: 200 mls/hr Documented by: Metronidazole 500 mg/ Premix 100 mls @ 100 mls/hr IV Q8H [facility] Last Admin: 10/15/21 03:40 Dose: 100 mls/hr Documented by: Lactobacillus Rhamnosus (Lactobacillus Rhamnosus Gg (Probiotic) Cap) 1 cap PO DAILY [facility] Last Admin: 10/15/21 08:46 Dose: 1 cap Documented by: Lorazepam (Lorazepam 2 Mg/Ml Sdv) 0.5 mg IVPUSH Q4H PRN PRN Reason: Nausea Meclizine HCl (Meclizine 25 Mg Tab) 25 mg PO Q6H PRN PRN Reason: Dizziness Balsalazide Disodium (750mg (Ptom)) 0 each PO DAILY [facility] Last Admin: 10/15/21 08:46 Dose: 1 each Documented by: Sodium Chloride (Sodium Chloride 0.9% 10 Ml Syringe) 10 ml FLUSH ASDIRECTED PRN PRN Reason: Keep Vein Open Discontinued Medications Hydromorphone HCl (Hydromorphone 0.5 Mg/0.5 Ml Syringe) 0.5 mg IVPUSH ONETIME ONE Stop: 10/14/21 07:28 Last Admin: 10/14/21 08:07 Dose: 0.5 mg Documented by: Hydromorphone HCl (Hydromorphone 0.5 Mg/0.5 Ml Syringe) 0.5 mg IVPUSH ONETIME ONE Stop: 10/14/21 08:39 Last Admin: 10/14/21 08:56 Dose: 0.5 mg Documented by: Sodium Chloride (Normal Saline) 1,000 mls @ 250 mls/hr IV ASDIRECTED [facility] Last Admin: 10/14/21 08:58 Dose: 250 mls/hr Documented by: Sodium Chloride (Normal Saline) 73 mls @ 3.3 mls/sec IV ASDIRECTED STA Stop: 10/14/21 09:13 Last Admin: 10/14/21 09:27 Dose: 3.3 mls/sec Documented by: Ciprofloxacin/Dextrose 400 mg/ (Premix) 200 mls @ 200 mls/hr IV Q12H [facility] Stop: 10/14/21 13:00 Last Admin: 10/14/21 11:15 Dose: 200 mls/hr Documented by: Metronidazole 500 mg/ Premix 100 mls @ 100 mls/hr IV Q8H SOB[facility] Stop: 10/14/21 13:45 Last Admin: 10/14/21 12:22 Dose: 100 mls/hr Documented by: Sodium Chloride (Normal Saline) 1,000 mls @ 75 mls/hr IV ASDIRECTED [facility] Last Admin: 10/15/21 09:10 Dose: 75 mls/hr Documented by: Iopamidol (Iopamidol 612 Mg/Ml 100 Ml Bottle) 100 ml IV . DIRECTED STA Stop: 10/14/21 09:12 Last Admin: 10/14/21 09:26 Dose: 100 ml Documented by: Ondansetron HCl (Ondansetron 4 Mg/2 Ml Sdv) 4 mg IVPUSH ONETIME ONE Stop: 10/14/21 07:27 Last Admin: 10/14/21 08:05 Dose: 4 mg Documented by: Sodium Chloride (Sodium Chloride 0.9% 10 Ml Syringe) 10 ml FLUSH ASDIRECTED PRN PRN Reason: Keep Vein Open Last Admin: 10/14/21 08:07 Dose: 10 ml Documented by: - Exam Quality Assessment: No: Supplemental Oxygen General: Alert, Oriented, Cooperative, No Acute Distress Lungs: Normal Respiratory Effort GI/Abdominal Exam: Normal Bowel Sounds, Soft, No Distention, Tender (mild/mod epigastric and left side ). No: Guarding Extremities: No Pedal Edema Skin: Warm, Dry Psy/Mental Status: Alert, Normal Affect - Patient Data Lab Results Last 24 hrs: Laboratory Results - last 24 hr 10/14/21 10/15/21 10/15/21 Range/Units 11:01 04:15 04:15 WBC 10.7 (4.5-11.0) K/uL RBC 4.37 (3.30-5.50) M/uL Hgb 10.9 L D (12.0-15.0) g/dL Hct 34.4 L (36.0-48.0) % MCV 79 L (80-98) fL MCH 25 L (27-31) pg MCHC 32 (32-36) % Plt Count 458 H (150-400) K/uL Neut % (Auto) 65.7 (36-66) % Lymph % (Auto) 23.0 L (24-44) % [place] % (Auto) 8.1 H (2-6) % Eos % (Auto) 2.9 (2-4) % Baso % (Auto) 0.3 (0-1) % Sodium 141 (140-148) mmol/L Potassium 3.8 (3.6-5.2) mmol/L Chloride 108 (100-108) mmol/L Carbon Dioxide 25 (21-32) mmol/L Anion Gap 7.7 (5.0-14.0) mmol/L BUN 10 (7-18) mg/dL Creatinine 0.9 (0.6-1.0) mg/dL Est Cr Clr Drug Dosing 54.71 mL/min Estimated GFR (MDRD) > 60 (>60) Glucose 103 (74-106) mg/dL Calcium 9.2 (8.5-10.1) mg/dL Magnesium 1.8 (1.8-2.4) mg/dL SARS CoV-2 RNA Rapid RENU Negative Result Diagrams: 10/15/21 04:15 10/15/21 04:15 Sepsis Event Note - Evaluation Sepsis Screening Result: No Definite Risk - Focused Exam Vital Signs: Vital Signs Temp Pulse Pulse Resp BP BP Pulse Ox 10/15/21 08:46 77 118/72 10/15/21 07:32 36.2 C 77 16 118/72 95 10/15/21 03:38 35.9 C L 78 16 118/52 L 95 10/14/21 22:30 36.4 C 84 16 135/52 L 95 - Problem List Review Problem List Initiated/Reviewed/Updated: Yes - My Orders Last 24 Hours: My Active Orders 10/15/21 09:00 Lactobacillus Rhamnosus GG [Culturelle] 1 cap PO DAILY 10/15/21 10:30 Sodium Chloride 0.9% [Normal Saline] 1,000 ml IV ASDIRECTED 10/15/21 Lunch Clear Liquid Diet [DIET] 10/16/21 05:00 BASIC METABOLIC PANEL,BMP [CHEM] Timed CBC W/O DIFF,HEMOGRAM [HEME] Timed (1) CRP [C-REACTIVE PROTEIN] [CHEM] Timed - Plan Plan:: ASSESSMENT AND PLAN - POSSIBLE SMALL BOWEL OBSTRUCTION-probable underlying enteritis, favor bacterial infection given elevated white count and abrupt onset. History of underlying Crohn's disease which has been well controlled recently. She is having some diarrhea. No significant pain. Feels better today than yesterday but not back to baseline. -Trial of clear liquids -IV fluids at to keep open -Pain and nausea medication as needed -Abdominal flatplate and upright x-ray in a.m. -Continue ciprofloxacin and metronidazole CROHN'S [id number] over the past several months, in the process of tapering herself off of Balasalazide. -Continue current dose of Balasalazide MAINTENANCE ISSUES -DVT prophylaxis; enoxaparin -GI prophylaxis; PPI -Nutrition; trial of clear liquids ADMISSION STATUS-patient will be admitted to inpatient status, expect at least a 2 night hospital stay for evaluation and management of problems as outlined above. At the time of this admission I do not reasonably expected evaluation and management of this problem will require more than a 96 hour hospital stay. DISPOSITION-anticipate discharge to home after the hospital stay. Emmett Funk MD
[2021-10-15] MEDS: Ciprofloxacin in D5W 400 MG in Premix Bag 1 BAG IV SCH ×4 (10:27→23:49)
[2021-10-15] MEDS ORDERED: Sodium Chloride 0.9% 1,000 ML IV SCH (10:30)
[2021-10-15] MEDS: Calcium Carbonate 500 MG Tab.Chew PO PRN (11:10)
--- NOTE | 2021-10-15 15:03 | CR ---
CHEST: Portable 10/14/2021 at 8:56 AM CLINICAL HISTORY:SOB COMPARISON:2016 FINDINGS: Lungs are mildly hyperaerated. The heart size, pulmonary vascularity and hilar structures are normal. No infiltrate effusion or pneumothorax is seen. IMPRESSION: No acute cardiopulmonary process. Hyperaeration
--- NOTE | 2021-10-15 15:16 | CR ---
Abdomen 2V AP Upright Decub CLINICAL HISTORY: SBO follow-up FINDINGS: No free air is seen. There is gas and feces throughout the colon. There are surgical clips in the right upper quadrant. Small intestinal configuration is nonacute. IMPRESSION: Decrease in small bowel distention when compared to prior study
[2021-10-15] MEDS: Pantoprazole 40 MG Tab.CR PO SCH (16:08)
[2021-10-16] MEDS: metroNIDAZOLE/Normal Saline 500 MG in Premix Bag 1 BAG IV SCH ×2 (04:21→11:22)
[2021-10-16] MEDS: BALSALAZIDE DISODIUM 750 MG PO SCH (08:12)
[2021-10-16] MEDS: Enoxaparin 40 MG/0.4 ML Syringe SUBCUT SCH (08:12)
[2021-10-16] MEDS: Lactobacillus Rhamnosus GG (Probiotic) Cap PO SCH (08:12)
[2021-10-16] MEDS: Pantoprazole 40 MG Tab.CR PO SCH ×2 (08:12→16:12)
[2021-10-16] MEDS ORDERED: Potassium Chloride 20 MEQ Tab.ER PO ONE (08:35)
[2021-10-16] MEDS: Atenolol 25 MG Tab PO SCH (09:22)
--- NOTE | 2021-10-16 09:23 | CR ---
Abdomen 2V AP Flat Upright CLINICAL HISTORY: Follow-up obstruction versus ileus FINDINGS: No free air is identified. There are distended loops of small bowel. There are some air-fluid levels. There is gas and feces throughout the colon. There has been previous right upper quadrant surgery. IMPRESSION: Slight increase in small bowel distention with air-fluid levels. There is some gas and feces in the colon with an increase in colonic gas. This may suggest resolving partial obstruction or resolving ileus
[2021-10-16] MEDS: Ciprofloxacin in D5W 400 MG in Premix Bag 1 BAG IV SCH ×2 (10:06)
--- NOTE | 2021-10-16 10:53 | PCM.PN ---
- General Info Date of Service: 10/16/21 Subjective Update: There were no acute events overnight. Patient continues to have intermittent diarrheal bowel movements. She does not report any abdominal pain today. She has been tolerating clear liquids and is hoping to try full liquids. No nausea. No fevers. Functional Status: Reports: Pain Controlled, Tolerating Diet - Review of Systems General: Denies: Fever Gastrointestinal: Denies: Abdominal Pain - Patient Data Vitals - Most Recent: Last Vital Signs Temp 36.1 C 10/16/21 10:42 Pulse 68 10/16/21 10:42 Resp 18 10/16/21 10:42 BP 136/64 10/16/21 10:42 Pulse Ox 96 10/16/21 10:42 Weight - Most Recent: 79.832 kg I&O - Last 24 Hours: Intake & Output 10/15/21 10/16/21 10/16/21 22:59 06:59 14:59 Intake Total 620 300 540 Balance 620 300 540 Lab Results Last 24 Hours: Laboratory Results - last 24 hr 10/16/21 10/16/21 Range/Units 04:20 04:20 WBC 6.7 (4.5-11.0) K/uL RBC 4.52 (3.30-5.50) M/uL Hgb 11.0 L (12.0-15.0) g/dL Hct 35.7 L (36.0-48.0) % MCV 79 L (80-98) fL MCH 24 L (27-31) pg MCHC 31 L (32-36) % Plt Count 457 H (150-400) K/uL Sodium 140 (140-148) mmol/L Potassium 3.3 L (3.6-5.2) mmol/L Chloride 105 (100-108) mmol/L Carbon Dioxide 26 (21-32) mmol/L Anion Gap 12.3 (5.0-14.0) mmol/L BUN 6 L (7-18) mg/dL Creatinine 0.8 (0.6-1.0) mg/dL Est Cr Clr Drug Dosing 61.55 mL/min Estimated GFR (MDRD) > 60 (>60) Glucose 94 (74-106) mg/dL Calcium 8.9 (8.5-10.1) mg/dL C-Reactive Protein 2.40 H (0.0-0.3) mg/dL Med Orders - Current: Current Medications Acetaminophen (Acetaminophen 325 Mg Tab) 650 mg PO Q4H PRN PRN Reason: Pain (Mild 1-3)/fever Atenolol (Atenolol 25 Mg Tab) 25 mg PO DAILY [facility] Last Admin: 10/16/21 09:22 Dose: Not Given Documented by: Calcium Carbonate/Glycine (Calcium Carbonate 500 Mg Tab.Chew) 1,000 mg PO Q2H PRN PRN Reason: Indigestion Last Admin: 10/15/21 11:10 Dose: 1,000 mg Documented by: Enoxaparin Sodium (Enoxaparin 40 Mg/0.4 Ml Syringe) 40 mg SUBCUT DAILY [facility] Last Admin: 10/16/21 08:12 Dose: 40 mg Documented by: Hydromorphone HCl (Hydromorphone 0.5 Mg/0.5 Ml Syringe) 0.5 mg IVPUSH Q2H PRN PRN Reason: Pain Ciprofloxacin/Dextrose 400 mg/ (Premix) 200 mls @ 200 mls/hr IV Q12H [facility] Last Admin: 10/16/21 10:06 Dose: 200 mls/hr Documented by: Metronidazole 500 mg/ Premix 100 mls @ 100 mls/hr IV Q8H [facility] Last Admin: 10/16/21 04:21 Dose: 100 mls/hr Documented by: Sodium Chloride (Normal Saline) 1,000 mls @ 25 mls/hr IV ASDIRECTED [facility] Lactobacillus Rhamnosus (Lactobacillus Rhamnosus Gg (Probiotic) Cap) 1 cap PO DAILY [facility] Last Admin: 10/16/21 08:12 Dose: 1 cap Documented by: Lorazepam (Lorazepam 2 Mg/Ml Sdv) 0.5 mg IVPUSH Q4H PRN PRN Reason: Nausea Meclizine HCl (Meclizine 25 Mg Tab) 25 mg PO Q6H PRN PRN Reason: Dizziness Pantoprazole Sodium (Pantoprazole 40 Mg Tab.Cr) 40 mg PO BIDAC [facility] Last Admin: 10/16/21 08:12 Dose: 40 mg Documented by: Balsalazide Disodium (750mg (Ptom)) 0 each PO DAILY [facility] Last Admin: 10/16/21 08:12 Dose: 1 each Documented by: Sodium Chloride (Sodium Chloride 0.9% 10 Ml Syringe) 10 ml FLUSH ASDIRECTED PRN PRN Reason: Keep Vein Open Discontinued Medications Hydromorphone HCl (Hydromorphone 0.5 Mg/0.5 Ml Syringe) 0.5 mg IVPUSH ONETIME ONE Stop: 10/14/21 07:28 Last Admin: 10/14/21 08:07 Dose: 0.5 mg Documented by: Hydromorphone HCl (Hydromorphone 0.5 Mg/0.5 Ml Syringe) 0.5 mg IVPUSH ONETIME ONE Stop: 10/14/21 08:39 Last Admin: 10/14/21 08:56 Dose: 0.5 mg Documented by: Sodium Chloride (Normal Saline) 1,000 mls @ 250 mls/hr IV ASDIRECTED [facility] Last Admin: 10/14/21 08:58 Dose: 250 mls/hr Documented by: Sodium Chloride (Normal Saline) 73 mls @ 3.3 mls/sec IV ASDIRECTED [facility] Stop: 10/14/21 09:13 Last Admin: 10/14/21 09:27 Dose: 3.3 mls/sec Documented by: Ciprofloxacin/Dextrose 400 mg/ (Premix) 200 mls @ 200 mls/hr IV Q12H [facility] Stop: 10/14/21 13:00 Last Admin: 10/14/21 11:15 Dose: 200 mls/hr Documented by: Metronidazole 500 mg/ Premix 100 mls @ 100 mls/hr IV Q8H [facility] Stop: 10/14/21 13:45 Last Admin: 10/14/21 12:22 Dose: 100 mls/hr Documented by: Sodium Chloride (Normal Saline) 1,000 mls @ 75 mls/hr IV ASDIRECTED [facility] Last Admin: 10/15/21 09:10 Dose: 75 mls/hr Documented by: Iopamidol (Iopamidol 612 Mg/Ml 100 Ml Bottle) 100 ml IV . DIRECTED [facility] Stop: 10/14/21 09:12 Last Admin: 10/14/21 09:26 Dose: 100 ml Documented by: Ondansetron HCl (Ondansetron 4 Mg/2 Ml Sdv) 4 mg IVPUSH ONETIME ONE Stop: 10/14/21 07:27 Last Admin: 10/14/21 08:05 Dose: 4 mg Documented by: Potassium Chloride (Potassium Chloride 20 Meq Tab.Er) 40 meq PO ONETIME ONE Stop: 10/16/21 08:36 Last Admin: 10/16/21 09:26 Dose: 40 meq Documented by: Sodium Chloride (Sodium Chloride 0.9% 10 Ml Syringe) 10 ml FLUSH ASDIRECTED PRN PRN Reason: Keep Vein Open Last Admin: 10/14/21 08:07 Dose: 10 ml Documented by: - Exam Quality Assessment: No: Supplemental Oxygen General: Alert, Oriented, Cooperative, No Acute Distress Lungs: Normal Respiratory Effort GI/Abdominal Exam: Normal Bowel Sounds, Soft, Non-Tender, No Distention Extremities: No Pedal Edema Skin: Warm, Dry Psy/Mental Status: Alert, Normal Affect - Patient Data Lab Results Last 24 hrs: Laboratory Results - last 24 hr 10/16/21 10/16/21 Range/Units 04:20 04:20 WBC 6.7 (4.5-11.0) K/uL RBC 4.52 (3.30-5.50) M/uL Hgb 11.0 L (12.0-15.0) g/dL Hct 35.7 L (36.0-48.0) % MCV 79 L (80-98) fL MCH 24 L (27-31) pg MCHC 31 L (32-36) % Plt Count 457 H (150-400) K/uL Sodium 140 (140-148) mmol/L Potassium 3.3 L (3.6-5.2) mmol/L Chloride 105 (100-108) mmol/L Carbon Dioxide 26 (21-32) mmol/L Anion Gap 12.3 (5.0-14.0) mmol/L BUN 6 L (7-18) mg/dL Creatinine 0.8 (0.6-1.0) mg/dL Est Cr Clr Drug Dosing 61.55 mL/min Estimated GFR (MDRD) > 60 (>60) Glucose 94 (74-106) mg/dL Calcium 8.9 (8.5-10.1) mg/dL C-Reactive Protein 2.40 H (0.0-0.3) mg/dL Result Diagrams: 10/16/21 04:20 10/16/21 04:20 Sepsis Event Note - Evaluation Sepsis Screening Result: No Definite Risk - Focused Exam Vital Signs: Vital Signs Temp Pulse Resp BP Pulse Ox 10/16/21 10:42 36.1 C 68 18 136/64 96 10/16/21 07:00 36.0 C L 68 18 110/49 L 95 10/16/21 03:33 36.1 C 68 18 126/57 L 96 10/15/21 23:45 35.6 C L 71 16 121/57 L 96 - Problem List Review Problem List Initiated/Reviewed/Updated: Yes - My Orders Last 24 Hours: My Active Orders 10/15/21 10:30 Sodium Chloride 0.9% [Normal Saline] 1,000 ml IV ASDIRECTED 10/15/21 16:30 Pantoprazole [ProTONIX] 40 mg PO BIDAC 10/16/21 Lunch Full Liquid Diet [DIET] - Plan Plan:: ASSESSMENT AND PLAN - POSSIBLE SMALL BOWEL OBSTRUCTION-probable underlying enteritis. Seems to slowly be getting better. Tolerating clear liquids. No fevers. -Trial of full liquids -IV fluids at to keep open -Pain and nausea medication as needed -Abdominal flatplate and upright x-ray in a.m. -Continue ciprofloxacin and metronidazole CROHN'S [id number] over the past several months, in the process of tapering herself off of Balasalazide. Clinically this does not quite look like an exacerbation of Crohn's disease. -Continue current dose of Balasalazide MAINTENANCE ISSUES -DVT prophylaxis; enoxaparin -GI prophylaxis; PPI -Nutrition; trial of full liquids DISPOSITION-anticipate discharge to home after the hospital stay. Emmett Funk MD
[2021-10-16] MEDS: Ciprofloxacin 500 MG Tab PO SCH (22:04)
[2021-10-16] MEDS: metroNIDAZOLE 250 MG Tab PO SCH (22:04)
[2021-10-17 07:49] VITALS: BP 131/60; PULSE 70
[2021-10-17] MEDS: Pantoprazole 40 MG Tab.CR PO SCH (07:50)
[2021-10-17] MEDS: Ciprofloxacin 500 MG Tab PO SCH (07:50)
[2021-10-17] MEDS: metroNIDAZOLE 250 MG Tab PO SCH ×2 (08:40→13:51)
[2021-10-17] MEDS: BALSALAZIDE DISODIUM 750 MG PO SCH (08:40)
[2021-10-17] MEDS: Lactobacillus Rhamnosus GG (Probiotic) Cap PO SCH (08:40)
[2021-10-17] MEDS: Enoxaparin 40 MG/0.4 ML Syringe SUBCUT SCH (08:40)
--- NOTE | 2021-10-17 09:30 | CR ---
Abdomen 2V AP Flat Upright CLINICAL HISTORY: Ileus versus obstruction FINDINGS: There are a few scattered dilated loops of small bowel. Appearance is similar to prior study. There is some gas seen throughout the colon also similar to prior study. There is questionable haustral thickening in the distal descending colon. This may be due to peristalsis IMPRESSION: Gas pattern is similar to prior day study. Questionable mucosal thickening in the distal descending colon. This may be due to peristalsis alone
--- NOTE | 2021-10-17 12:48 | PCM.DCSUM1 ---
Discharge Summary - Hospital Course Brief History: 75-year-old female with history of Crohn's disease who presented with abdominal pain, nausea and vomiting. She is admitted for management of possible partial small bowel obstruction and probable bacterial enteritis. Diagnosis: Stroke: No - Discharge Data Discharge Date: 10/17/21 Discharge Disposition: Home, Self-Care 01 Condition: Good - Referral to Home Health Primary Care Physician: PCP None - Discharge Diagnosis/Problem(s) (1) Enteritis SNOMED Code(s): 19457599 ICD Code: K52.9 - NONINFECTIVE GASTROENTERITIS AND COLITIS, UNSPECIFIED Status: Acute Current Visit: Yes (2) Partial bowel obstruction SNOMED Code(s): 73074394021492330 ICD Code: K56.600 - PARTIAL INTESTINAL OBSTRUCTION, UNSPECIFIED TO CAUSE Status: Acute Current Visit: Yes Qualifiers: Intestinal obstruction type: other intestinal obstruction Qualified Code(s): K56.690 - Other partial intestinal obstruction (3) Crohn's disease SNOMED Code(s): 01716098 ICD Code: K50.90 - CROHN'S DISEASE, UNSPECIFIED, WITHOUT COMPLICATIONS Status: Chronic Current Visit: Yes Qualifiers: Gastrointestinal tract location: unspecified location Digestive disease complication type: unspecified complication Qualified Code(s): K50.919 - Crohn's disease, unspecified, with unspecified complications - Patient Summary/Data Hospital Course: P presented to the emergency room with progressive abdominal pain, nausea and vomiting. Work-up in the emergency roomam revealed mild leukocytosis on laboratory studies. CT scan of the abdomen and pelvis suggested a possible partial small bowel obstruction due to enteritis. Given the acute onset of her symptoms bacterial infection leading to a partial obstruction was favored. Patient does have a history of Crohn's disease but this has been well controlled. She was started on ciprofloxacin and metronidazole as well as IV fluids and symptomatic management. She was admitted to the hospital for further management. Over the next couple of days we did see improvements in her abdominal pain. Her abdominal x-ray improved. We were able to try some clear liquids. Initially she had to go quite slow with these but did not have significant vomiting. Over the next 24 hours we saw further improvement with a significant decrease in her abdominal pain and improvement in her appetite. She was tolerating full liquids much better. We were able to transition her to oral antibiotics and advance her diet to full liquids. She tolerated this well so she was transitioned to soft foods and tolerated these well also. She feels well enough to go home at this time. I think she is safe for outpatient management. She is tolerating a soft diet as well as oral antibiotics. The plan is for her to continue 2-1/2 more days to complete a course of treatment for the presumed bacterial enteritis. She will continue on her usual home medications including the Crohn's disease management. She has follow-up scheduled in about 2 weeks. - Patient Instructions Diet: Regular Diet as Tolerated Activity: As Tolerated Showering/Bathing: May Shower Notify Provider of: Fever, Increased Pain Other/Special Instructions: 1. You were in the hospital for management of enteritis that is presumed to be infectious. Your condition is improving with antibiotic therapy provided in the hospital. I do recommend a short course of antibiotics after hospital discharge to complete treatment. Please take ciprofloxacin 500 mg twice daily for 5 doses. Your first dose outside of the hospital will be due tonight. Also, please take metronidazole 500 mg 3 times daily for 7 doses. Your first dose outside of the hospital will be due tonight. I would recommend soft, bland and boring foods for the next several days before returning to her usual diet. You may increase your activity as tolerated. 2. Continue your usual home medications as previously prescribed. 3. Follow up with Dr Liang Webb as scheduled in October unless your symptoms do not continue to get better or if you have difficulty between now and the appointment. - Discharge Plan *PRESCRIPTION DRUG MONITORING PROGRAM REVIEWED*: Not Applicable *COPY OF PRESCRIPTION DRUG MONITORING REPORT IN PATIENT KARLOS: Not Applicable Prescriptions/Med Rec: Ciprofloxacin [Ciprofloxacin HCl] 500 mg PO BIDAC #5 tablet metroNIDAZOLE [Metronidazole] 500 mg PO TID #7 tablet Home Medications: Home Meds *Probiotic 1 tab PO DAILY 11/14/15 [History] ALPRAZolam [Xanax] 0.5 mg PO BID 11/14/15 [History] Cholecalciferol (Vitamin D3) [Vitamin D3] 2,000 unit PO DAILY 11/14/15 [History] Multivit-Min/FA/Lycopen/Lutein [Centrum Silver Tablet] 1 tab PO DAILY 11/14/15 [History] Ubidecarenone [Co Q-10] 200 mg PO DAILY 11/14/15 [History] atenoloL [Tenormin] 25 mg PO DAILY 11/14/15 [History] diphenhydrAMINE [Benadryl] 25 mg PO BEDTIME PRN 11/14/15 [History] Cyanocobalamin (Vitamin B-12) [Vitamin B-12] 1,000 mg PO DAILY 04/26/20 [History] Meclizine HCl 25 mg PO ASDIRECTED PRN 04/26/20 [History] Balsalazide [Colazal] 750 mg PO DAILY 10/14/21 [History] Ciprofloxacin [Ciprofloxacin HCl] 500 mg PO BIDAC #5 tablet 10/17/21 [Rx] metroNIDAZOLE [Metronidazole] 500 mg PO TID #7 tablet 10/17/21 [Rx] Oxygen Therapy Mode: Room Air Patient Handouts: Fall Prevention in the Home, Adult, [id number], Colitis Referrals: Liang Webb MD [Physician] - 11/09/21 10:45 am (Follow-up as scheduled in October or sooner if symptoms do not continue to get better or if they get worse For your appointment register by 10:25 and labs will be drawn prior to MD appointment.) - Discharge Summary/Plan Comment DC Time >30 min.: No Total # of Minutes for Discharge Time: 25 - Patient Data Vitals - Most Recent: Last Vital Signs Temp 36.4 C 10/17/21 07:47 Pulse 70 10/17/21 07:47 Resp 16 10/17/21 07:47 BP 131/60 10/17/21 07:47 Pulse Ox 97 10/17/21 07:47 Weight - Most Recent: 80.377 kg I&O - Last 24 hours: Intake & Output 10/16/21 10/17/21 10/17/21 22:59 06:59 14:59 Intake Total 120 300 Balance 120 300 Med Orders - Current: Current Medications Acetaminophen (Acetaminophen 325 Mg Tab) 650 mg PO Q4H PRN PRN Reason: Pain (Mild 1-3)/fever Atenolol (Atenolol 25 Mg Tab) 25 mg PO DAILY [facility] Last Admin: 10/16/21 09:22 Dose: Not Given Documented by: Calcium Carbonate/Glycine (Calcium Carbonate 500 Mg Tab.Chew) 1,000 mg PO Q2H PRN PRN Reason: Indigestion Last Admin: 10/15/21 11:10 Dose: 1,000 mg Documented by: Ciprofloxacin (Ciprofloxacin 500 Mg Tab) 500 mg PO BIDAC [facility] Last Admin: 10/17/21 07:50 Dose: 500 mg Documented by: Enoxaparin Sodium (Enoxaparin 40 Mg/0.4 Ml Syringe) 40 mg SUBCUT DAILY [facility] Last Admin: 10/17/21 08:40 Dose: 40 mg Documented by: Hydromorphone HCl (Hydromorphone 0.5 Mg/0.5 Ml Syringe) 0.5 mg IVPUSH Q2H PRN PRN Reason: Pain Lactobacillus Rhamnosus (Lactobacillus Rhamnosus Gg (Probiotic) Cap) 1 cap PO DAILY [facility] Last Admin: 10/17/21 08:40 Dose: 1 cap Documented by: Lorazepam (Lorazepam 2 Mg/Ml Sdv) 0.5 mg IVPUSH Q4H PRN PRN Reason: Nausea Meclizine HCl (Meclizine 25 Mg Tab) 25 mg PO Q6H PRN PRN Reason: Dizziness Metronidazole (Metronidazole 250 Mg Tab) 500 mg PO TID [facility] Last Admin: 10/17/21 08:40 Dose: 500 mg Documented by: Pantoprazole Sodium (Pantoprazole 40 Mg Tab.Cr) 40 mg PO BIDAC [facility] Last Admin: 10/17/21 07:50 Dose: 40 mg Documented by: Balsalazide Disodium (750mg (Ptom)) 0 each PO DAILY [facility] Last Admin: 10/17/21 08:40 Dose: 1 each Documented by: Sodium Chloride (Sodium Chloride 0.9% 10 Ml Syringe) 10 ml FLUSH ASDIRECTED PRN PRN Reason: Keep Vein Open Discontinued Medications Hydromorphone HCl (Hydromorphone 0.5 Mg/0.5 Ml Syringe) 0.5 mg IVPUSH ONETIME ONE Stop: 10/14/21 07:28 Last Admin: 10/14/21 08:07 Dose: 0.5 mg Documented by: Hydromorphone HCl (Hydromorphone 0.5 Mg/0.5 Ml Syringe) 0.5 mg IVPUSH ONETIME ONE Stop: 10/14/21 08:39 Last Admin: 10/14/21 08:56 Dose: 0.5 mg Documented by: Sodium Chloride (Normal Saline) 1,000 mls @ 250 mls/hr IV ASDIRECTED [facility] Last Admin: 10/14/21 08:58 Dose: 250 mls/hr Documented by: Sodium Chloride (Normal Saline) 73 mls @ 3.3 mls/sec IV ASDIRECTED [facility] Stop: 10/14/21 09:13 Last Admin: 10/14/21 09:27 Dose: 3.3 mls/sec Documented by: Ciprofloxacin/Dextrose 400 mg/ (Premix) 200 mls @ 200 mls/hr IV Q12H [facility] Stop: 10/14/21 13:00 Last Admin: 10/14/21 11:15 Dose: 200 mls/hr Documented by: Metronidazole 500 mg/ Premix 100 mls @ 100 mls/hr IV Q8H [facility] Stop: 10/14/21 13:45 Last Admin: 10/14/21 12:22 Dose: 100 mls/hr Documented by: Sodium Chloride (Normal Saline) 1,000 mls @ 75 mls/hr IV ASDIRECTED [facility] Last Admin: 10/15/21 09:10 Dose: 75 mls/hr Documented by: Ciprofloxacin/Dextrose 400 mg/ (Premix) 200 mls @ 200 mls/hr IV Q12H [facility] Last Admin: 10/16/21 10:06 Dose: 200 mls/hr Documented by: Metronidazole 500 mg/ Premix 100 mls @ 100 mls/hr IV Q8H [facility] Last Admin: 10/16/21 11:22 Dose: 100 mls/hr Documented by: Sodium Chloride (Normal Saline) 1,000 mls @ 25 mls/hr IV ASDIRECTED [facility] Iopamidol (Iopamidol 612 Mg/Ml 100 Ml Bottle) 100 ml IV . DIRECTED [facility]A Stop: 10/14/21 09:12 Last Admin: 10/14/21 09:26 Dose: 100 ml Documented by: Ondansetron HCl (Ondansetron 4 Mg/2 Ml Sdv) 4 mg IVPUSH ONETIME ONE Stop: 10/14/21 07:27 Last Admin: 10/14/21 08:05 Dose: 4 mg Documented by: Potassium Chloride (Potassium Chloride 20 Meq Tab.Er) 40 meq PO ONETIME ONE Stop: 10/16/21 08:36 Last Admin: 10/16/21 09:26 Dose: 40 meq Documented by: Sodium Chloride (Sodium Chloride 0.9% 10 Ml Syringe) 10 ml FLUSH ASDIRECTED PRN PRN Reason: Keep Vein Open Last Admin: 10/14/21 08:07 Dose: 10 ml Documented by:
== END 2021-10-17 15:00 | disposition home or self-care (01) | DRG 392 ==
LOC: JP.ED 07:12 → JP.MS 10:55
PROVIDERS: ADMIT Hospitalist; ATTEND Internal Medicine
DX: K56.600 Partial intestinal obstruction, unspecified as to cause (principal); E86.0 Dehydration; K50.90 Crohn's disease, unspecified, without complications; H54.7 Unspecified visual loss; K52.9 Noninfective gastroenteritis and colitis, unspecified; K50.012 Crohn's disease of small intestine with intestinal obstruction; Z88.0 Allergy status to penicillin; Z88.2 Allergy status to sulfonamides; Z88.8 Allergy status to other drugs, medicaments and biological substances; F32.A Depression, unspecified; F41.9 Anxiety disorder, unspecified; Z98.890 Other specified postprocedural states; Z90.89 Acquired absence of other organs; Z79.899 Other long term (current) drug therapy; Z87.01 Personal history of pneumonia (recurrent); Z87.440 Personal history of urinary (tract) infections; Z90.710 Acquired absence of both cervix and uterus; Z87.19 Personal history of other diseases of the digestive system; Z87.09 Personal history of other diseases of the respiratory system; Z90.49 Acquired absence of other specified parts of digestive tract; Z20.822 Contact with and (suspected) exposure to COVID-19
CPT/HCPCS: 36415; 71045 ×2; 74177; 80053; 81001; 83690; 84484; 85025; 86140; 93005; J1170 ×2; J2405; J7030; Q9967 ×2; 74019; 74019-26; 74021; 74021-26; 80048; 83735; 85027; A9270-GY; J0744; J1650; J3490; U0002

== ENCOUNTER 2022-01-12 23:10 | Inpatient (IN) | payer MEDICARE ==
[2022-01-12] MEDS ORDERED: Ondansetron 4 MG/2 ML SDV IVPUSH ONE (23:17)
[2022-01-12] MEDS ORDERED: Sodium Chloride 0.9% 10 ML Syringe FLUSH PRN (23:17)
[2022-01-12] MEDS ORDERED: Sodium Chloride 0.9% 1,000 ML IV SCH (23:30)
[2022-01-13] MEDS ORDERED: cefTRIAXone 2 GM in Sodium Chloride 0.9% 50 ML IV ONE (00:07)
[2022-01-13] MEDS ORDERED: HYDROmorphone 0.5 MG/0.5 ML Syringe IVPUSH ONE (01:41)
[2022-01-13] MEDS ORDERED: methylPREDNISolone Sodium Succinate 125 MG/2 ML SDV IVPUSH ONE (01:41)
[2022-01-13] MEDS ORDERED: Acetaminophen 325 MG Tab PO PRN (02:37)
[2022-01-13] MEDS ORDERED: Ondansetron 4 MG Tab.DIS PO PRN (02:37)
[2022-01-13] MEDS ORDERED: HYDROmorphone 1 MG/ML Syringe IVPUSH PRN (02:37)
[2022-01-13] MEDS ORDERED: Magnesium Hydroxide 400 MG/5 ML Susp 30 ML Cup PO PRN (02:37)
[2022-01-13] MEDS ORDERED: Melatonin 3 MG Tab PO PRN (02:37)
[2022-01-13] MEDS ORDERED: HYDROmorphone 0.5 MG/0.5 ML Syringe IVPUSH PRN (02:47)
[2022-01-13] MEDS: NS + KCl 20mEq/L 1,000 ML IV SCH ×2 (02:59→03:29)
[2022-01-13] MEDS ORDERED: Lidocaine 1% 5 ML VIAL ONE (02:59)
[2022-01-13] MEDS: Potassium Chloride 20 MEQ, Lidocaine 1% 2 ML in Sodium Chloride 0.9% 100 ML IV SCH ×2 (03:31→05:31)
[2022-01-13] MEDS ORDERED: Ondansetron 4 MG/2 ML SDV IV PRN (05:30)
[2022-01-13] MEDS: Pantoprazole 40 MG Vial IVPUSH SCH (05:45)
[2022-01-13] MEDS: Atenolol 25 MG Tab PO SCH (09:38)
[2022-01-13] MEDS: methylPREDNISolone Sodium Succinate 125 MG/2 ML SDV IVPUSH SCH ×2 (10:21→17:24)
[2022-01-13] MEDS: Lactated Ringers 1,000 ML IV SCH ×2 (10:45→23:10)
[2022-01-14] MEDS: LORazepam 2 MG/ML SDV IVPUSH PRN ×2 (00:11→18:41)
[2022-01-14] MEDS: methylPREDNISolone Sodium Succinate 125 MG/2 ML SDV IVPUSH SCH ×3 (02:50→17:35)
[2022-01-14] MEDS: Pantoprazole 40 MG Vial IVPUSH SCH (05:08)
[2022-01-14] MEDS: Atenolol 25 MG Tab PO SCH (10:00)
[2022-01-15] MEDS: methylPREDNISolone Sodium Succinate 125 MG/2 ML SDV IVPUSH SCH ×4 (02:00→18:06)
[2022-01-15] MEDS: Pantoprazole 40 MG Vial IVPUSH SCH (07:05)
[2022-01-15] MEDS: Atenolol 25 MG Tab PO SCH ×2 (08:55→09:45)
[2022-01-16] MEDS: methylPREDNISolone Sodium Succinate 125 MG/2 ML SDV IVPUSH SCH ×3 (02:28→17:43)
[2022-01-16] MEDS: Pantoprazole 40 MG Tab.CR PO SCH (07:06)
[2022-01-16] MEDS: Atenolol 25 MG Tab PO SCH (08:51)
[2022-01-17] MEDS: methylPREDNISolone Sodium Succinate 125 MG/2 ML SDV IVPUSH SCH ×2 (01:34→09:30)
[2022-01-17] MEDS: Pantoprazole 40 MG Tab.CR PO SCH (07:13)
[2022-01-17 11:01] VITALS: BP 133/64; PULSE 80
== END 2022-01-17 14:30 | disposition home health service (06) | DRG 387 ==
LOC: JP.ED 23:10 → JP.ICU 01-13 01:42 → UNDODISIN 01-13 11:27
PROVIDERS: ADMIT Internal Medicine; ATTEND Hospitalist
DX: A41.9 Sepsis, unspecified organism (principal); K56.609 Unspecified intestinal obstruction, unspecified as to partial versus complete obstruction; K50.012 Crohn's disease of small intestine with intestinal obstruction; K50.90 Crohn's disease, unspecified, without complications; E87.6 Hypokalemia; I95.9 Hypotension, unspecified; R00.1 Bradycardia, unspecified; Z20.822 Contact with and (suspected) exposure to COVID-19; Z88.8 Allergy status to other drugs, medicaments and biological substances; I10 Essential (primary) hypertension; F41.9 Anxiety disorder, unspecified; H54.7 Unspecified visual loss; F32.A Depression, unspecified; Z88.6 Allergy status to analgesic agent; Z88.0 Allergy status to penicillin; Z88.2 Allergy status to sulfonamides; Z79.52 Long term (current) use of systemic steroids; Z79.899 Other long term (current) drug therapy; Z87.01 Personal history of pneumonia (recurrent); Z87.440 Personal history of urinary (tract) infections; Z90.710 Acquired absence of both cervix and uterus
CPT/HCPCS: 36415; 43752; 74018; 74018-26; 74019; 74019-26; 74021; 74021-26; 74176; 80048; 80053; 81001; 83605; 83690; 83735; 84145; 85025; 85027; 86140; 87040; 96365; 96375; 99285; 99285-25; A9270-GY; C9113; J0696; J1170; J2060; J2405; J2930; J3480; J3490; J7030; J7120; U0002

== ENCOUNTER 2025-06-03 06:32 | Day surgery (SDC) | payer MEDICARE ==
[2025-06-03] MEDS: Lactated Ringers 1,000 ML IV SCH (06:59)
[2025-06-03] MEDS ORDERED: fentaNYL 50 MCG/ML SDV ONE (07:15)
[2025-06-03] MEDS ORDERED: Propofol 200 MG/20 ML SDV ONE (07:15)
[2025-06-03 09:22] VITALS: BP 147/72; PULSE 73
== END 2025-06-03 10:06 | disposition home or self-care (01) ==
LOC: JP.SDS 06:32
PROVIDERS: ATTEND Surgery
DX: Z12.11 Encounter for screening for malignant neoplasm of colon (principal); K50.112 Crohn's disease of large intestine with intestinal obstruction; K63.3 Ulcer of intestine
CPT/HCPCS: G0121; J2704; J3010; J7120; 00811-QZ